=== PATIENT | male | born 2000 | race Hispanic/Latino ===

== ENCOUNTER 2025-02-22 01:40 | Emergency (ER) | payer SELFPAY ==
[2025-02-22] MEDS ORDERED: EPINEPHrine 1 MG/10 ML SYR IV ONE (01:41)
--- NOTE | 2025-02-22 02:24 | EDPHYS ---
Physician Documentation [facility] Name: Adrián Brennan Jr Age: 25 yrs Sex: Male : 2000 Arrival Date: 02/22/2025 Time: 01:40 Bed 3 Private MD: ED Physician Khoi Altamirano HPI: 02/22 01:51 This 25 yrs old Male presents to ER via Unassigned with complaints of CPR. sp4 01:51 Patient arrives in cardiopulmonary arrest. . sp4 02:00 Time of arrival to the emergency department at 01:42. It is reported by EMS that Tye spIsaiah came to EMS at 0054 about unresponsive male. Patient was found in the bathroom by his family and a call was placed by a the family to EMS. Patient was found by EMS at 0057 without pulses. Without spontaneous respirations. And unresponsive. EMS initiated CPR at 0057. Patient was intubated with size 8 ET tube. Patient was given intraosseous access to the right head of humerus. EMS administered epinephrine intraosseous x 4 doses also 1 L interosseous IV fluids normal saline. Initial rhythm was asystole, patient was resuscitated with chest compressions with Ruben device. On periodic pulse checks patient was found to have no pulses and he was in asystole without shockable rhythm. Patient arrived to the emergency room at 0 1:42, without ROSC. Patient was assessed in the emergency room found to be unresponsive, with dilated and fixed pupils, without gag reflex, without brainstem reflexes, without spontaneous respirations, asystole on the monitor, no pulses. On arrival chest compressions were in progress via Ruben device. Patient intubated size 8 ET tube. Right head of humerus intraosseous access in place. . 02:05 Collateral information obtained from patient's sister. Patient's sister states that sp4 patient has been consuming Percocet pills from the local contact. Patient's family reported that is is potential overdose. . - Family history:: not pertinent. ROS: 02:05 Constitutional: ROS not available sp4 02:05 All other systems are negative, 02:05 Unable to obtain ROS due to Intubated, unresponsive, Exam: 02:05 Constitutional: Ruben device compressions in progress on arrival , patient arrives sp4 with peripheral and central cyanosis, normal pulses on initial check, no spontaneous respirations, dilated and fixed pupils, no gag reflex. Patient is intubated size 8 ET tube. on rhythim check - Asystolic on the monitor. Head/Face: Normocephalic, atraumatic. Central and peripheral cyanosis Eyes: Dilated and fixed pupils, negative oculocephalic reflex ENT: Nares patent. Intubated size 8.0 ET tube. Tube is correctly position through vocal cords based on visualization with glide scope. Neck: Trachea midline, no thyromegaly or masses palpated, and no cervical lymphadenopathy. Chest/axilla: Normal chest wall appearance . No spontaneous respirations Cardiovascular: No pulses in the carotid or femoral locations palpable during pulse check. Respiratory: Bilateral breath sounds auscultated with Ambu bag ventilations. No spontaneous respirations. Abdomen/GI: Soft, nondistended, Back: No deformities, signs of postmortem lividity Male : Normal genitalia with no discharge or lesions. No signs of traumatic injuries, no signs hernias, uncircumcised male Skin: Skin is intact, no signs of injuries, central and peripheral cyanosis MS/ Extremity: Nonpalpable pulses in extremities, no signs of deformities, no signs of traumatic injuries Neuro: GCS 3 T, negative corneal reflex , negative oculocephalic reflex, pupils dilated and fixed, negative gag reflex , unresponsive to painful noxious stimuli, overall signs of prolonged hypoxia Kev Coma Score: 02:05 Eye Response: none(1). Modifying Factors: Intubated. Motor Response: none(1). Verbal sp4 Response: none(1). Total: 3. MDM: 02:00 Medical Screening Exam initiated sp4 02:05 Differential diagnosis: arrythmia, cardiac arrest, respiratory arrest, traumatic sp4 injury, overdose, asphyxiation, renal failure. Data reviewed: vital signs, nurses notes, EMS record. 02:17 ED course: 25-year-old male arrives with potential opioid overdose. Patient arrived sp4 after total of 45-minute resuscitation in the field. Patient arrived intubated size 8.0 ET tube. Examination with glide scope confirmed intubation was through the vocal cords. Patient has intraosseous access. Chest compressions were delivered via Ruben device. Patient arrived without brainstem reflexes, cyanotic, asystole on the monitor. Nonpalpable pulses. Full assessment was made and we see that patient did not respond to high-quality CPR and proper ACLS measures for the past 45 minutes. After a round of CPR here in ER and full assessment it was determined that further resuscitation efforts are futile, time of called at 0 1:45 AM . . ED course: Investigation was recommended to the family and police was contacted by the ER staff. . 02:21 ED course: Most likely suspected diagnosis is opiate acute overdose with respiratory sp4 depression and respiratory failure . Administered Medications: No medications were administered Disposition: 02:21 . sp4 02:22 . sp4 Disposition Summary: 02/22/25 02:23 Patient Notes: Location: [facility] sp4 Pronouncing Physician: Khoi Altamirano Time of : 01:45 02/22/2025 sp4 Diagnosis - Respiratory arrest sp4 - Acute respiratory failure with hypoxia sp4 - Cardiac arrest, cause unspecified sp4 - Suspected opiate overdose sp4 Signatures: Khoi Altamirano MD MD sp4 Corrections: (The following items were deleted from the chart) 02:22 02:21 sp4 sp4
--- NOTE | 2025-02-22 02:24 | ER ---
Nurse's Notes [facility] Name: Adrián Brennan Jr Age: 25 yrs Sex: Male : 2000 Arrival Date: 02/22/2025 Time: 01:40 Bed 3 Private MD: Diagnosis: Respiratory arrest;Acute respiratory failure with hypoxia;Cardiac arrest, cause unspecified;Suspected opiate overdose Presentation: 02/22 01:42 Chief complaint: EMS states: Pt was found by family unresponsive in bathroom. Pt had vc1 not been seen for over 2 hours. CPR started at 0057. Asystole of monitor. 4 rounds of Epi administered. No shockable rhythm on monitor. 01:42 Care prior to arrival: Oral intubation, CPR via thumper performed by EMS Medication(s) vc1 given: 4 rounds epi, 1 liter NS, 4 mg Narcan. Compressions began at 00:57. 01:42 Method Of Arrival: EMS: [facility] vc1 01:42 Acuity: OBIE 1 vc1 - Family history:: not pertinent. Screenin:42 Abuse screen: Denies threats or abuse. Nutritional screening: No deficits noted. vc1 Tuberculosis screening: No symptoms or risk factors identified. Assessment: 01:42 CPR assessment: unresponsive. Cardiac rhythm is asystole. vc1 01:42 General: Appears distressed, obese, Behavior is unresponsive. Neuro: Level of vc1 Consciousness is unresponsive. EENT: pupils fixed. Respiratory: Airway via oral intubation. 01:45 Reassessment: Pt arrived at 0142 via EMS, CPR in progress with LUCUS. 8cm ET in place. vc1 IO to left humerol head. Pupils fixed, asystole on monitor. Pt administered 1 mg EPI followed by flush at 0143. 0145 pulse check performed asystole on monitor. Time of called by physician at 0145. 04:16 General: PT TAKEN BY M.E. AT THIS TIME.. bm8 Kev Coma Score: 02:05 Eye Response: none(1). Modifying Factors: Intubated. Motor Response: none(1). Verbal sp4 Response: none(1). Total: 3. ED Course: 01:41 Patient arrived in ED. vk 01:42 Arm band placed on right wrist. vc1 01:51 Khoi Altamirano MD is Attending Physician. sp4 01:51 Sanjuanita Workman, RN is Primary Nurse. kd3 02:02 Triage completed. vc1 02:22 Khoi Altamirano MD is Pronouncing Provider. sp4 Administered Medications: No medications were administered Outcome: 01:42 Outcome Patient vc1 01:42 Patient : Time of 01:45 Pronounced by Khoi Altamirano MD vc1 01:42 Condition: 04:28 Transferred Note: pt transferred to [facility] in [place] vc1 04:29 Patient left the ED. vc1 Signatures: Sanjuanita Workman, RN RN kd3 Ann Cruz RN RN vc1 Khoi Altamirano MD MD sp4 Avis Paz Brad, RN RN bm8 Corrections: (The following items were deleted from the chart) 02:10 01:42 Care prior to arrival: Oral intubation, CPR via thumper performed by EMS vc1 Medication(s) given: 4 rounds epi, 1 liter NS vc1
== END 2025-02-22 04:29 ==
LOC: ER 01:40
DX: I46.9 Cardiac arrest, cause unspecified (principal)
CPT/HCPCS: 92950; 99285; J0171